=== PATIENT | female | born 1950 | race African-American/Black ===

== ENCOUNTER 2024-12-27 10:58 | Outpatient (CLI) | payer MEDICARE, MEDICAID, SELFPAY ==
--- NOTE | ~2024-12-27 | CT_ITS ---
EXAMINATION:CT lung screening DATE: 12/27/2024 11:33 INDICATION: Personal history of nicotine dependence. TECHNIQUE: Computed tomography (CT) of the chest was performed without intravenous contrast. Automated exposure control and iterative reconstruction technique were employed. The dose-length product (DLP) was 92.36 mGy-cm. COMPARISON: None. FINDINGS: There is moderate emphysema. There is mild atelectasis bilaterally. There is a 7 mm nodule in left lower lobe. There is a 6 mm nodule in left upper lobe. There are a few other scattered pulmonary nodules measuring up to 3 mm. Calcified bilateral lung nodules and calcified hilar and mediastinal lymph nodes are consistent with old granulomatous disease. No pleural effusion. The heart size is normal. There are coronary artery calcifications. No pericardial effusion. There is a 2.9 cm cyst in right kidney. There is moderate thoracic spondylosis. IMPRESSION: 1. Lung-RADS category 3: Probably benign. Further evaluation is recommended with noncontrast low-dose chest CT in 6 months. Reviewed, dictated and finalized at location [facility]. R [facility]FTING GUIDE IMPRESSION: 1. Lung-RADS category 3: Probably benign. Further evaluation is recommended wit h noncontrast low-dose chest CT in 6 months.
== END 2024-12-27 10:59 | disposition home or self-care (01) ==
PROVIDERS: PCP Internal Medicine Infectious Disease; Visit Provider Internal Medicine Infectious Disease
DX: Z12.2 Encounter for screening for malignant neoplasm of respiratory organs (principal); Z87.891 Personal history of nicotine dependence; Z78.0 Asymptomatic menopausal state
CPT/HCPCS: 71271